=== PATIENT | male | born 1960 | race Caucasian/White ===

== ENCOUNTER 2018-07-28 10:50 | Outpatient (REF) | payer SELFPAY ==
[2018-08-01 10:28] LABS: Lyme Ab w Rflx to Lyme Confirm Negative
== END 2018-07-28 11:10 ==
LOC: NCHCN 10:50
PROVIDERS: PCP Physician Assistant Medical; Visit Provider Nurse Practitioner Family
DX: A93.8 Other specified arthropod-borne viral fevers (principal); W57.XXXA Bitten or stung by nonvenomous insect and other nonvenomous arthropods, initial encounter
CPT/HCPCS: 86618

== ENCOUNTER 2022-09-22 15:13 | Outpatient (REF) | payer SELFPAY ==
[2022-09-22 15:57] LABS: Abs Immature Grans 0.05 10^3/uL (0.0-0.06); Absolute Basophil Count 0.07 10^3/uL (0.0-0.2); Absolute Eosinophil Count 0.04 10^3/uL (0.0-0.7); Absolute Lymphocyte Count 1.06 10^3/uL (1.2-3.4); Absolute Monocyte Count 0.61 10^3/uL (0.1-0.8); Absolute Neutrophil Count 6.73 10^3/uL (1.2-6.7); Basophils % 0.8; Eosinophils % 0.5; HGB 15.3 g/dL (13.5-17.5); Immature Grans % 0.6; Lymphocytes % 12.4; MCH 31.6 pg (27.0-33.0); MCHC 34.8 % (32.0-36.0); MCV 91 fL (80-95); MPV 10.4 fL (8.0-11.0); Monocytes % 7.1; Neutrophils % 78.6; Platelet Count 288 10^3/uL (130-400); RBC 4.84 10^6/uL (4.36-5.78); RDW 13.6 % (11.8-14.1); RDW-SD 45.6 fL; WBC 8.56 10^3/uL (4.4-10.8)
[2022-09-22 16:20] LABS: ALT 23 U/L (16-63); AST 25 U/L (15-37); Alkaline Phosphatase 93 U/L (46-116); Anion Gap 7.1 mmol/L (3-11); BUN 12 mg/dL (7-18); Bilirubin, Total 0.5 mg/dL (0.2-1.0); CO2 28.9 mmol/L (21.0-32.0); CREATININE 1.1 mg/dL (0.70-1.30); Calcium 9.4 mg/dL (8.5-10.1); Chloride 100 mmol/L (98-107); Estimated GFR 75.43 (mL/min/1.73m2); Glucose 80 mg/dL (74-106); Potassium 4.6 mmol/L (3.5-5.1); Sodium 136 mmol/L (136-145); TSH (W/Ref FT4) 1.63 uIU/mL (0.36-3.74); Total Protein 7.2 g/dL (6.4-8.2)
[2022-09-23 18:07] LABS: PSA, Screening 3.3 ng/mL (<=4.5)
== END 2022-09-22 15:14 | disposition home or self-care (01) ==
LOC: NCHCN 15:13
PROVIDERS: PCP Physician Assistant Medical; Visit Provider Nurse Practitioner Family
DX: R63.4 Abnormal weight loss (principal); R05.3 Chronic cough; F10.10 Alcohol abuse, uncomplicated; Z00.00 Encounter for general adult medical examination without abnormal findings; Z80.42 Family history of malignant neoplasm of prostate; Z12.5 Encounter for screening for malignant neoplasm of prostate
CPT/HCPCS: 80053; 84153; 84443; 85025

== ENCOUNTER → 2022-10-08 02:15 | Outpatient (CLI) | payer SELFPAY ==
--- NOTE | 2022-10-08 | DI.RAD_ITS ---
Exam(s) XR CHEST 2V PA LATERAL EXAM: XR CHEST 2V PA LATERAL CLINICAL HISTORY: EXERTIONAL SOB, R06.09,SMOKER, F17.209,CHRONIC DYSPNEA TECHNIQUE: COMPARISON: No exams were available for comparison FINDINGS: The lungs are hyperinflated but clear. No pleural effusion seen. Cardiac size within normal limits. IMPRESSION: The appearance is consistent with COPD. RADIATION DOSE DELIVERED: Total DLP
== END ==
PROVIDERS: PCP Physician Assistant Medical; Visit Provider Nurse Practitioner Family
DX: R06.09 Other forms of dyspnea (principal); J44.9 Chronic obstructive pulmonary disease, unspecified
CPT/HCPCS: 71046

== ENCOUNTER 2023-01-11 09:55 | Outpatient (CLI) | payer SELFPAY ==
--- NOTE | 2023-01-11 08:30 | DI.RAD_ITS ---
Exam(s) XR WRIST LT COMPLETE EXAM: XR WRIST LT COMPLETE CLINICAL HISTORY: left thumb pain. TECHNIQUE: 2D digital imaging was performed. Three views. COMPARISON: CR XR WRIST RT COMPL NAVICULAR from 01/11/2023 FINDINGS: BONES: No acute fracture is present. No bony destructive lesion is seen. The lunate shows mild scler osis and question of small cystic areas. Degenerative. JOINTS: The carpal bones are normally aligned. There are degenerative changes at the 1st carpal met acarpal joint. The there is joint space narrowing and periarticular spurring as well as a few small chronic appearing calcifications medial to the joint space. There are more mild degenerative changes at the navicular trapezium trapezoid joint. SOFT TISSUE: Normal. IMPRESSION: Degenerative changes greatest at the 1st carpal metacarpal joint. DATA REPOSITORY: RADIATION DOSE DELIVERED:
--- NOTE | 2023-01-11 08:57 | DI.RAD_ITS ---
Exam(s) XR THUMB LT EXAM: XR THUMB LT CLINICAL HISTORY: left thumb pain. TECHNIQUE: 2D digital imaging was performed. Three views. COMPARISON: None. FINDINGS: There is mild narrowing of the interphalangeal joint of the thumb and mild periarticular spurring. T he metacarpophalangeal joints unremarkable. There are degenerative changes at the 1st carpal metacar pal joint. There is periarticular spurring and a few small chronic appearing fragments in the adjace nt soft tissues. IMPRESSION: Degenerative change greatest at the 1st carpal metacarpal joint. DATA REPOSITORY: RADIATION DOSE DELIVERED:
--- NOTE | 2023-01-11 08:58 | DI.RAD_ITS ---
Exam(s) XR WRIST RT COMPL NAVICULAR EXAM: XR WRIST RT COMPL NAVICULAR CLINICAL HISTORY: right wrist pain. TECHNIQUE: 2D digital imaging was performed. Three views. COMPARISON: CR XR WRIST LT COMPLETE from 01/11/2023 FINDINGS: BONES: No acute fracture is present. No bony destructive lesion is seen. JOINTS: The carpal bones are normally aligned. Mild degenerative changes are noted at the 1st carpa l metacarpal joint. SOFT TISSUE: Normal. IMPRESSION: Mild degenerative changes. DATA REPOSITORY: RADIATION DOSE DELIVERED:
== END 2023-01-11 09:56 | disposition home or self-care (01) ==
LOC: DIORS 09:55
PROVIDERS: PCP Physician Assistant Medical; Referring Provider Physician Assistant Medical; Visit Provider Physician Assistant
DX: M18.12 Unilateral primary osteoarthritis of first carpometacarpal joint, left hand (principal); M19.031 Primary osteoarthritis, right wrist
CPT/HCPCS: 73110; 73140

== ENCOUNTER 2023-12-27 12:26 | Outpatient (REF) | payer MEDICARE, SELFPAY ==
[2023-12-27 15:58] LABS: HCT 44.2 % (40.0-50.0); HGB 15.5 g/dL (13.5-17.5); MCH 31.6 pg (27.0-33.0); MCHC 35.1 % (32.0-36.0); MCV 90 fL (80-95); MPV 10.4 fL (8.0-11.0); Platelet Count 316 10^3/uL (130-400); RBC 4.91 10^6/uL (4.36-5.78); RDW 12.9 % (11.8-14.1); RDW-SD 42.7 fL; WBC 6.98 10^3/uL (4.4-10.8)
[2023-12-27 16:44] LABS: ALT 29 U/L (16-63); AST 32 U/L (15-37); Albumin 3.8 g/dL (3.4-5.0); Alkaline Phosphatase 91 U/L (46-116); BUN 9 mg/dL (7-18); Bilirubin, Total 0.7 mg/dL (0.2-1.0); CO2 28.7 mmol/L (21.0-32.0); Calcium 9.3 mg/dL (8.5-10.1); Chloride 99 mmol/L (98-107); Estimated GFR 83.52 (mL/min/1.73m2); Glucose 102 mg/dL (74-106); Potassium 4.3 mmol/L (3.5-5.1); TSH 1.77 uIU/mL (0.36-3.74); Total Protein 7.1 g/dL (6.4-8.2)
[2023-12-27 17:12] LABS: Anion Gap 7.3 mmol/L (3-11); Calculated LDL 84 mg/dL (<100); Cholesterol 183 mg/dL (<200); HDL Cholesterol 86 mg/dL (40-60); Sodium 135 mmol/L (136-145); Triglyceride 68 mg/dL (<150)
[2023-12-28 09:08] LABS: PSA, Screening 2.7 ng/mL (<=4.5)
== END 2023-12-27 12:27 | disposition home or self-care (01) ==
LOC: NCHCN 12:26
PROVIDERS: PCP Nurse Practitioner Family; Visit Provider Nurse Practitioner Family
DX: R06.09 Other forms of dyspnea (principal); Z12.5 Encounter for screening for malignant neoplasm of prostate; Z13.6 Encounter for screening for cardiovascular disorders
CPT/HCPCS: 80053; 80061; 84153; 85027; 84443

== ENCOUNTER → 2024-01-04 01:02 | Outpatient (CLI) | payer MEDICARE, SELFPAY ==
--- NOTE | 2024-01-04 | ETT_ITS ---
APPROVED REPORT Exam: Exercise Treadmill Patient Location: Out-Patient Room/Bed: Stress Nurse: Mónica Rivas RN Ordering Provider:NANCI ROSA, Contact Number: [phone] BMI: 19.10 Baseline Rhythm: Sinus Rhythm Comment: Occasional PAC's Indications: STEPHENS, Medical History Medical History: Weight loss, nicotine dependence, ETOH abuse Cardiac Medications: Symbicort, xopenex, albuterol sulfate, fluticasone propionate/salmeterol Allergies: NKDA Cardiac Risk Factors: Family hx, COPD, current smoker Previous Cardiac Procedures: None Pretest Chest Pain Characteristics: None Exercise History: Indeterminate Physical Disabilities: None Lung Sounds: Diminsished throughout Heart Sounds: Irregular Stress Test Details Test: Exercise stress testing was performed using a Elian protocol. Rest Stress HR Resting HR Supine: 67 bpm Max Heart Rate (APMHR): 155 bpm Resting HR Standin bpm Target HR (85% APMHR): 132 bpm Max HR Achieved: 114 bpm % of APMHR: 74 Recovery HR: 71 bpm HR response to stress: Normal HR response to stress BP Resting BP Supine: 158/90 mmHg Resting BP Standin/100 mmHg Max BP: 210/110 mmHg Recovery BP: 152/98 mmHg BP response to stress: Abnormal hypertensive response to stress. ECG Resting ECG: Sinus Rhythm Ectopy: Occasional PAC's Comment: Peaked T wave Stress ECG: Sinus Tachycardia ST Change: Nondiagnostic low heart rate Arrhythmia: Occasional PAC's, couplets Recovery ECG: Sinus Rhythm Recovery ST Change: Nondiagnostic low heart rate Recovery Arrhythmia: Occasioncal PAC's Clinical Reason for Termination: Dyspnea Stress Symptoms: Severe Dyspnea Exercise duration: 03 min48 sec Exercise capacity: 5.59 METs Angina Score: None Waller Treadmill Score: 3.2 Rate Pressure Product: [id number] Stress ECG Conclusion 1. Resting electreocardiogram showed poor R wave progression 2. Patient exercised on the Elian protocol for 3 minutes and 48 seconds, a workload of 5.59 METS stop ping due to dyspnea 3. Normal heart rate response to exercise. Moderately hypertensive blood pressure response to exerci se. Peak heart rate achieved was 74% of predicted heart rate for age 4. The electrocardiographic portion of the test was nondiagnostic due to inadequate heart rate,though no abnormalities were noted at the heart rate and workload achieved 5. There were no significant arrhythmias Waller Treadmill Score is 3.2 which is Moderate risk. Stress Test Summary STAGE Time (mins) Speed (mph) Grade (%) HR BP SpO2 SYMPTOMS METS Supine 67 158/90 94 Standing 76 188/100 1 3 1.7 10 111 198/108 93 4.5 1 min recovery 85 210/110 94 3 min recovery 74 172/100 96 6 min recovery 71 152/98 96 Patient unable to reach target HR due to severe dyspnea. Patient recovered quickly and left ambulator y in no apparent distress.
== END ==
PROVIDERS: PCP Nurse Practitioner Family; Visit Provider Nurse Practitioner Family
DX: R06.09 Other forms of dyspnea (principal)
CPT/HCPCS: 93016; 93018; 93017

== ENCOUNTER 2024-01-10 05:08 | Outpatient (CLI) | payer MEDICARE, SELFPAY ==
[2024-01-10] MEDS: Levalbuterol HFA 15 GM INH 4 PUFF IH (09:21)
[2024-01-10] MEDS: Inhaler, Assist Device 1 EACH MC (09:22)
--- NOTE | 2024-01-10 11:02 | W.PFT ---
Date of service: 01/10/24 Time of Service: 08:03 Pulmonary Function Test Result Indications: Dyspnea Interpretation Spirometry: There is very severe airflow limitation. No bronchodilator response. Lung Volumes: There is air trapping and hyperinflation. Diffusion Capacity: Decreased diffusion. Airway Pressure: Increased airways resistance. Impression There is very severe airflow obstruction with air trapping and a decreased diffusion. Clinical Correlation therefore is recommended.
== END 2024-01-10 05:09 | disposition home or self-care (01) ==
LOC: RT 05:08
PROVIDERS: PCP Nurse Practitioner Family; Visit Provider Nurse Practitioner Family
DX: R06.00 Dyspnea, unspecified (principal); R94.2 Abnormal results of pulmonary function studies
CPT/HCPCS: 94060; 94726; 94729

== ENCOUNTER → 2024-01-18 08:15 | Outpatient (BNVA) | payer MEDICARE, SELFPAY | PROVIDERS: PCP Nurse Practitioner Family; Referring Provider Nurse Practitioner Family; Visit Provider Physician Assistant Surgical | DX: J44.9 Chronic obstructive pulmonary disease, unspecified (principal); F17.210 Nicotine dependence, cigarettes, uncomplicated | CPT/HCPCS: 94664; 99215 ==

== ENCOUNTER → 2024-01-25 01:19 | Outpatient (CLI) | payer MEDICARE, SELFPAY ==
--- NOTE | 2024-01-25 08:30 | DI.US_ITS ---
APPROVED REPORT EXAM: Comprehensive 2D, Doppler, and color-flow Echocardiogram Patient Location: Out-Patient Retail Receiving Clerk: Malena Medina RDCS (AE) Indications: Dyspnea on exertion Other Information Study Quality: Fair. Technically limited study due to body habitus, history of smoking technically li mited views. Conclusion Normal left ventricular wall thickness and chamber size. Ejection fraction is 55-55%. There are no segmental wall motion abnormalities Normal right ventricular size and function Both atria are normal in size There are no structural valvular abnormalities Mild tricuspid regurgitation, Estimated right ventricular systolic pressure is 40 mmHg Wall motion Left Ventricle Very low parasternal imaging due to lung interface, calculation not performed. The left ventricle is normal size. Left ventricular systolic function is borderline. There is normal left ventricular wall thickness. There are no segmental wall motion abnormalities There is no ventricular septal defect vis ualized. LVEF is 50-55%. Right Ventricle Right ventricle is grossly normal in size. Right ventricular systolic function is grossly normal. Atria The left atrium size is normal. The right atrium size is normal. The interatrial septum is intact wit h no evidence for an atrial septal defect. Aortic Valve The aortic valve is normal in structure. Aortic valve is trileaflet. There is no aortic valvular sten osis. No aortic regurgitation is present. Mitral Valve The mitral valve is normal in structure. No evidence of mitral valve stenosis. Trace mitral regurgita tion. Tricuspid Valve The tricuspid valve is normal in structure. There is no tricuspid valve stenosis. Mild tricuspid regu rgitation. The RVSP is 40.2 mmHg. Pulmonic Valve The pulmonary valve is normal in structure. There is no pulmonic valvular stenosis. Trace pulmonic re gurgitation. Great Vessels The aortic root is normal in size. Ascending aorta is not well visualized. Aortic arch is not well vi sualized. IVC is normal in size and collapses >50% with inspiration. Pericardium There is no pericardial effusion. 2D Dimensions Ao Root d 3.05 cm M: 3.1 - 3.7 M-Mode TAPSE 1.60 cm (M/F) >1.7 Auto EF LV EDV A4C 81.3 mL LV EDV A2C 92.7 mL LV EDV BP 88.2 mL LV ESV A4C 40.9 mL LV ESV A2C 46.4 mL LV ESV BP 43.3 mL LVEF(%) A4C 49.6 % LVEF(%) A2C 49.9 % LVEF(%) BP 50.9 % LV SV A4C 40.3 ml LV SV A2C 46.2 ml LV SV BP 44.9 ml LV CO A4C 2.8 L/min LV CO A2C 3.3 L/min LV CO BP 3.1 L/min HR A4C 69.34 BPM HR A2C 71.57 BPM LV EDV Index (BP) LA Volume LA Length A4C 4.4 cm LA Length A2C 3.6 cm LA Area A4C s 12.24 cm2 LA Area A2C s 9.04 cm2 LA Vol A4C A-L 29.02 mL LA Vol A2C A-L 19.15 mL LA Vol Biplane A-L 25.9 mL LA Vol/BSA A4C A-L LA Vol/BSA A2C A-L LA Vol/BSA BP A-L 15.0 mL/m2 LA Vol A4C MOD 25.5 mL LA Vol A2C MOD 17.3 mL LA Vol BP MOD 22.9 mL RA Volume RA Area A4C 10.5 cm2 RA ESV A4C (A-L) 25.1mL RA Vol/BSA A4C A-L RA Length A4C 3.7 cm RA ESV A4C (MOD) 23.8mL LV Diastology MV E' medial 0.056 (>0.07 m/s) MV E Vmax 0.53 (0.4-1.3 m/s) MV E/E' MED 9.55 (<14) MV A Vmax 0.65 (0.4-1.3 m/s) MV E' lateral 0.041 (>0.1 m/s) E/A Ratio 0.8 MV E/E' LAT 13.12 (<14) MV E' Average 0.048 m/s MV E/E'(average) 11.05 Aortic Valve AoV Vmax 0.88 m/s LVOT Vmax 0.83 m/s AoV Peak Grad 3.1 mmHg LVOT Peak Grad 2.8 mmHg AoV Area (Vmax) 3.06 cm2 LVOT VTI 0.147 m AoV VTI 0.166 m LVOT Mean Grad 1.3 mmHg AoV Mean Devante. 0.58 m/s LVOT SV 47.38 mL AoV Mean Grad 1.6 mmHg LVOT Diam s 2.00 cm AoV Area (VTI) 2.86 cm2 Velocity Ratio 0.94 Mitral Valve MV DT 286 (160-240 msec) MV Vmax TIPS 0.63 m/s MV Mean Grad 0.7 (<2mmHg) MV VTI 0.174 m Pulmonary Valve PV Vmax 0.74 (0.5-1.5 m/s) RVOT Vmax 0.69 m/s PV Peak Grad 2.2 mmHg RVOT Peak Gr. 1.9 mmHg PV Mean Devante 0.49 m/s RVOT VTI 0.119 m PV Mean Grad 1.1 mmHg RVOT Mean Gr. 0.9 mmHg Tricuspid Valve RA Pressure 3.00 mmHg TR Vmax 3.05 m/s TV S' 0.14 m/s TR Peak Grad 37.1 mmHg RVSP (TR) 40.2 mmHg
== END ==
PROVIDERS: PCP Nurse Practitioner Family; Visit Provider Nurse Practitioner Family
DX: R06.09 Other forms of dyspnea (principal)
CPT/HCPCS: 93306

== ENCOUNTER → 2024-02-02 02:59 | Outpatient (CLI) | payer MEDICARE, SELFPAY ==
--- NOTE | 2024-02-02 07:00 | DI.CTLCSR_ITS ---
Exam(s) CT CHEST LUNG CANCER SCREEN EXAM: CT CHEST LUNG CANCER SCREEN CLINICAL HISTORY: Screening for lung cancer,current smoker, f17.210 TECHNIQUE: Imaging Protocol: Axial computed tomography images with coronal and sagittal reformatted images were created and reviewed COMPARISON: CR XR CHEST 2V PA LATERAL from 10/08/2022 FINDINGS: Tracheobronchial tree: Patent where visualized. Pulmonary parenchyma: Moderately severe centrilobular and paraseptal emphysematous changes are presen t. No focal consolidating infiltrates. Lung Nodules: None. Mediastinum and Stephanie: No dominant adenopathy or fluid collection. The esophagus is unremarkable. Thyroid gland: Unremarkable. Lymph nodes: Unremarkable. Pleura: No effusion or pneumothorax. Heart: The heart is not dilated. Mild coronary artery calcification is present. No pericardial effus ion. Aorta: Thoracic aorta non-dilated.Atherosclerotic calcification is present. Upper abdomen: Unremarkable. Soft Tissues: Unremarkable. Bones: Within normal limits. IMPRESSION: No pulmonary nodules. Lung RADS Cat 1 - Negative: No nodules and definitely benign nodules Lung-RADS 1.0 CATEGORIES: Category 0 - Prior chest CT exam(s) being located for comparison. Category 1 - Annual screening in 12 months. No nodules or definitely benign nodules. Category 2 - Annual screening in 12 months. Benign appearance. Nodules with low likelihood of becomin g active cancer. Category 3 - 6-month follow-up. Probably benign. Short-term follow-up suggested. Nodules with low lik elihood of becoming active cancer. Category 4A - 3-month follow-up and CT/PET if >8 mm in size. Suspicious finding. Findings which requi re additional testing. Category 4B - Findings which require additional testing and tissue sampling. Suspicious finding. Category 4X - Category 3 or 4 nodules with additional features or imaging findings that increases the suspicion of malignancy. Modifier S- Potentially clinically significant finding. (Non lung cancer) RADIATION DOSE DELIVERED: Total DLP Total DLP DATA REPOSITORY: All CT scans at this facility are submitted to the National Radiology Data Registry (NRDR) Dose Index Registry (DIR) with the [employer] (ACR). RADIATION OPTIMIZATION: All CT scans at this facility use at least one of these dose optimization te chniques: automated exposure control; mA and/or kV adjustment per patient size (includes targeted exa ms where dose is matched to clinical indication); or iterative reconstruction.
== END ==
PROVIDERS: PCP Nurse Practitioner Family; Visit Provider Physician Assistant Surgical
DX: F17.210 Nicotine dependence, cigarettes, uncomplicated (principal); Z12.2 Encounter for screening for malignant neoplasm of respiratory organs
CPT/HCPCS: 71271

== ENCOUNTER 2024-03-03 11:17 | Outpatient (RCR) | payer MEDICARE, SELFPAY ==
--- NOTE | 2024-03-03 12:45 | HOLTER_ITS ---
APPROVED REPORT Conclusion This is a 48-hour Holter monitor Rhythm throughout is sinus with an average heart rate 80. Minimum is 54, maximum 113 There were rare isolated atrial and ventricular ectopic beats There was no atrial fibrillation, no high-grade AV block, no pauses greater than 3 seconds Patient symptoms had no correlation to any dysrhythmia
== END 2024-03-21 23:59 | disposition home or self-care (01) ==
LOC: CARDOPNVT 11:17
PROVIDERS: PCP Nurse Practitioner Family; Visit Provider Nurse Practitioner Family
DX: R00.2 Palpitations (principal)
CPT/HCPCS: 93227; 93225

== ENCOUNTER → 2024-04-05 03:53 | Outpatient (CLI) | payer MEDICARE, SELFPAY ==
--- NOTE | 2024-04-05 | DI.US_ITS ---
Exam(s) US AAA SCREENING EXAM: US AAA SCREENING CLINICAL HISTORY: Screening for CV disorders, Z13.6; tobacco use, Z72.0 COMPARISON: No exams were available for comparison FINDINGS: Abdominal Aorta: Proximal: 2.4 x 2.4 cm Mid: 2.0 x 2.0 cm Distal: 1.7 x 1.8 cm Iliac's: Right: 0.9 x 0.9 cm Left: 0.9 x 0.9 cm Minimal atherosclerotic calcification. IMPRESSION: No evidence of abdominal aortic aneurysm. DATA REPOSITORY:
== END ==
PROVIDERS: PCP Nurse Practitioner Family; Visit Provider Nurse Practitioner Family
DX: Z13.6 Encounter for screening for cardiovascular disorders (principal); Z72.0 Tobacco use
CPT/HCPCS: 76706

== ENCOUNTER → 2024-04-21 10:03 | Outpatient (BNVA) | payer MEDICARE, SELFPAY | PROVIDERS: PCP Nurse Practitioner Family; Referring Provider Nurse Practitioner Family; Visit Provider Student in an Organized Health Care Education/Training Program | DX: J43.9 Emphysema, unspecified (principal); F17.200 Nicotine dependence, unspecified, uncomplicated | CPT/HCPCS: 99214 ==

== ENCOUNTER 2024-05-15 15:17 | Outpatient (REF) | payer MEDICARE, SELFPAY ==
[2024-05-17 10:45] LABS: Lyme Ab w Rflx to Lyme Confirm Negative (Negative)
[2024-05-18 21:40] LABS: Anaplasma phagocytophilum Negative (Negative); B. miyamotoi PCR Negative (Negative); Babesia divergens/MO-1 Negative (Negative); Babesia duncani Negative (Negative); Babesia microti Negative (Negative); Ehrlichia chaffeensis Negative (Negative); Ehrlichia ewingii/canis Negative (Negative); Ehrlichia muris eauclairensis Negative (Negative)
== END 2024-05-15 15:18 | disposition home or self-care (01) ==
LOC: NCHCN 15:17
PROVIDERS: PCP Nurse Practitioner Family; Visit Provider Nurse Practitioner Family
DX: T14.8XXA Other injury of unspecified body region, initial encounter (principal); W57.XXXA Bitten or stung by nonvenomous insect and other nonvenomous arthropods, initial encounter; Z20.818 Contact with and (suspected) exposure to other bacterial communicable diseases
CPT/HCPCS: 87798; 86618

== ENCOUNTER → 2024-08-02 09:37 | Outpatient (BNVA) | payer MEDICARE, SELFPAY | PROVIDERS: PCP Nurse Practitioner Family; Referring Provider Nurse Practitioner Family; Visit Provider Physician Assistant Surgical | DX: J43.9 Emphysema, unspecified (principal) | CPT/HCPCS: 99214 ==

== ENCOUNTER → 2024-10-31 09:53 | Outpatient (BNVA) | payer MEDICARE, SELFPAY | PROVIDERS: PCP Nurse Practitioner Family; Referring Provider Nurse Practitioner Family; Visit Provider Physician Assistant Surgical | DX: J43.9 Emphysema, unspecified (principal); F17.210 Nicotine dependence, cigarettes, uncomplicated | CPT/HCPCS: 99214 ==

== ENCOUNTER → 2025-01-31 10:23 | Outpatient (BNVA) | payer MEDICARE, SELFPAY | PROVIDERS: PCP Nurse Practitioner Family; Referring Provider Nurse Practitioner Family; Visit Provider Physician Assistant Surgical | DX: F17.200 Nicotine dependence, unspecified, uncomplicated (principal); J43.9 Emphysema, unspecified | CPT/HCPCS: 99214 ==

== ENCOUNTER 2025-02-09 00:14 | Outpatient (CLI) | payer MEDICARE, SELFPAY ==
--- NOTE | 2025-02-09 12:28 | DI.CTLCSR_ITS ---
Exam(s) CT CHEST LUNG CANCER SCREEN EXAM: CT CHEST LUNG CANCER SCREEN CLINICAL HISTORY: Screening for lung cancer,former cigarette smoker, z87.891 TECHNIQUE: Imaging Protocol: Axial computed tomography images with coronal and sagittal reformatted images were created and reviewed. Low dose screening protocol. COMPARISON: CT CT CHEST LUNG CANCER SCREEN from 02/02/2024 FINDINGS: Tracheobronchial tree: No bronchiectasis or mucus plugging. Mediastinum and Stephanie: No dominant adenopathy or fluid collection. Pulmonary parenchyma: Area of patchy density seen in the posterior inferior aspect of the right upper lobe, abutting the fissure, measuring approximately 2.5 cm. Seven millimeter nodule in the right lo wer lobe. Five millimeter nodule in the left upper lobe. Multiple micronodules in the right middle lobe. Moderate to severe centrilobular and paraseptal emphysematous changes. Large bleb at the left major f issure. Bibasilar atelectasis. Lung Nodules: None. Pleura: No effusion. No pneumothorax. Heart: The heart is not dilated. Mild coronary artery calcifications are seen. No pericardial effusio n. Aorta: Thoracic aorta non-dilated. Upper abdomen: Unremarkable. Bones: Unremarkable for age. Soft Tissues: Unremarkable. IMPRESSION: 2.5 centimeter area of mass versus infiltrate in the right upper lobe. Multiple Micronodules in the right middle lobe may be inflammatory. Left upper and right lower lobe nodules. All the findings ar e new from the prior exam. Due to multifocal Abnormality, the findings may be related to infectious or inflammatory etiologies. Clinical correlation is recommended. Lung RADS Cat 4B - Suspicious: Findings for which additional diagnostic testing and/or tissue samplin g is recommended Lung-RADS 1.0 CATEGORIES: Category 0 - Prior chest CT exam(s) being located for comparison. Category 1 - Annual screening in 12 months. No nodules or definitely benign nodules. Category 2 - Annual screening in 12 months. Benign appearance. Nodules with low likelihood of becomin g active cancer. Category 3 - 6-month follow-up. Probably benign. Short-term follow-up suggested. Nodules with low lik elihood of becoming active cancer. Category 4A - 3-month follow-up and CT/PET if >8 mm in size. Suspicious finding. Findings which requi re additional testing. Category 4B - Findings which require additional testing and tissue sampling. Category 4X - Category 3 or 4 nodules with additional features or imaging findings that increases the suspicion of malignancy. Modifier S- Potentially clinically significant findings (non lung cancer) RADIATION DOSE DELIVERED: !Error Total DLP DATA REPOSITORY: All CT scans at this facility are submitted to the National Radiology Data Registry (NRDR) Dose Index Registry (DIR) with the [employer] (ACR). RADIATION OPTIMIZATION: All CT scans at this facility use at least one of these dose optimization te chniques: automated exposure control; mA and/or kV adjustment per patient size (includes targeted exa ms where dose is matched to clinical indication); or iterative reconstruction.
== END 2025-02-09 00:34 ==
PROVIDERS: PCP Nurse Practitioner Family; Visit Provider Physician Assistant Surgical
DX: Z87.891 Personal history of nicotine dependence (principal); Z12.2 Encounter for screening for malignant neoplasm of respiratory organs
CPT/HCPCS: 71271

== ENCOUNTER 2025-05-14 02:37 | Outpatient (CLI) | payer MEDICARE, SELFPAY ==
--- NOTE | 2025-05-14 07:15 | DI.CT_ITS ---
Exam(s) CT CHEST WO EXAM: CT CHEST WO CLINICAL HISTORY: F/U PNEUMONIA, J18.9 TECHNIQUE: Imaging Protocol: Axial computed tomography images with coronal and sagittal reformatted images were created and reviewed. Computer aided detection (CAD) was utilized. CONTRAST MATERIAL: Intravenous: Omnipaque 350 Contrast volume:structured data ml. COMPARISON: CT CT CHEST LUNG CANCER SCREEN from 02/02/[address] CHEST LUNG CANCER SCREEN from 02/09/2025 FINDINGS: Pulmonary parenchyma: No consolidation. No dominant measurable mass. Moderate emphysematous changes. Large bleb again noted the anterior left lower lobe. Interval clearing of previously noted nodular density in the posterior right upper lobe. Clearing of previously noted densities at the lung bases. Clearing of micro nodules noted in the right middle lobe. No suspicious pulmonary nodules. Tracheobronchial tree: Minimal lower lobe bronchiectasis. Focal mucous plugging noted in a left lower lobe branch. Additional small area of focal medius this plugging at the left lower lobe right lower lobe. Mediastinum and Stephanie: No dominant adenopathy or fluid collection. Pleura: No effusion. No pneumothorax. Heart: The heart is not dilated. Mild coronary artery calcifications are seen. Aorta: Thoracic aorta non-dilated. Mild atherosclerotic changes. Pulmonary arteries: No gross evidence of emboli. Upper abdomen: No acute findings. Bones: Degenerative changes in the spine. Soft tissues: Unremarkable. IMPRESSION: Interval clearing of previously noted infiltrates. Underlying emphysematous changes. Mild lower lobe bronchiectasis. Mild focal lower lobe mucous plugging. RADIATION DOSE DELIVERED: 146.09mGy.cm Total DLP DATA REPOSITORY: All CT scans at this facility are submitted to the National Radiology Data Registry (NRDR) Dose Index Registry (DIR) with the [employer] (ACR). RADIATION OPTIMIZATION: All CT scans at this facility use at least one of these dose optimization techniques: automated exposure control; mA and/or kV adjustment per patient size (includes targeted exams where dose is matched to clinical indication); or iterative reconstruction.
== END 2025-05-14 02:57 ==
LOC: DI 02:37
PROVIDERS: PCP Nurse Practitioner Family; Visit Provider Physician Assistant Surgical
DX: J18.9 Pneumonia, unspecified organism (principal)
CPT/HCPCS: 71250

== ENCOUNTER → 2025-05-16 10:56 | Outpatient (BNVA) | payer MEDICARE, SELFPAY | PROVIDERS: PCP Nurse Practitioner Family; Referring Provider Nurse Practitioner Family; Visit Provider Physician Assistant Surgical | DX: J44.9 Chronic obstructive pulmonary disease, unspecified (principal); Z87.891 Personal history of nicotine dependence; J43.9 Emphysema, unspecified | CPT/HCPCS: 99214 ==

== ENCOUNTER 2025-07-09 04:30 | Outpatient (CLI) | payer MEDICARE, SELFPAY | END 2025-07-09 04:31 | disposition home or self-care (01) | LOC: RT 04:30 | PROVIDERS: PCP Nurse Practitioner Family; Visit Provider Physician Assistant Surgical | DX: J96.11 Chronic respiratory failure with hypoxia (principal) | CPT/HCPCS: 94618 ==

== ENCOUNTER 2025-07-11 19:38 | Outpatient (REF) | payer MEDICARE, SELFPAY ==
[2025-07-11 21:22] LABS: HCT 45.2 % (40.0-50.0); HGB 15.4 g/dL (13.5-17.5); MCH 29.2 pg (27.0-33.0); MCHC 34.1 % (32.0-36.0); MCV 86 fL (80-95); MPV 10.6 fL (8.0-11.0); Platelet Count 266 10^3/uL (130-400); RBC 5.27 10^6/uL (4.36-5.78); RDW 15.3 % (11.8-14.1); RDW-SD 47.9 fL; WBC 11.22 10^3/uL (4.4-10.8)
== END 2025-07-11 19:39 | disposition home or self-care (01) ==
LOC: NCHCN 19:38
PROVIDERS: PCP Nurse Practitioner Family; Visit Provider Nurse Practitioner Family
DX: R10.32 Left lower quadrant pain (principal); Z87.19 Personal history of other diseases of the digestive system
CPT/HCPCS: 80053; 83690; 85027

== ENCOUNTER 2025-07-17 09:46 | Outpatient (CLI) | payer MEDICARE, SELFPAY ==
--- NOTE | 2025-07-17 | DI.CT_ITS ---
Exam(s) CT ABDOMEN PELVIS W EXAM: CT ABDOMEN PELVIS W CLINICAL HISTORY: LT SIDED ABD PAIN,R10.9,ABD PAIN,R63.4,ABNL WT LOSS,H/O OTHER DISEASE. TECHNIQUE: Imaging Protocol: Axial computed tomography images with coronal and sagittal reformatted images were created and reviewed CONTRAST MATERIAL: Intravenous: Omnipaque-350 75cc Oral: Yes. Oral contrast was also administered for bowel opacification. COMPARISON: CT CT CHEST WO from 05/14/2025 FINDINGS: VISUALIZED LUNG BASES: High there are COPD findings. However, there is no bronchial wall thickening and areas of infiltrate in the right lower lobe and right middle lobe and left lower lobe which were not evident arm 05/14/2025. There is no associated pleural effusion.. ABDOMEN: There is no ascites. LIVER: There is a benign 2 mm cyst in the superior aspect of the right hepatic lobe. Does not require further workup. No solid lesions in the liver. No dilated intrahepatic ducts. GALLBLADDER/BILIARY: No obvious gallbladder pathology. CBD is not dilated. PANCREAS: No evidence of pancreatic mass nor dilatation of the pancreatic duct. SPLEEN: Spleen is not enlarged. No obvious intrasplenic lesions. Splenic and portal veins are patent. ADRENALS: There are no significant adrenal masses. KIDNEYS:No cysts evident. No solid renal masses. No calculi nor hydronephrosis.. ABDOMINAL AORTA: Calcified but not enlarged. Iliac arteries are also calcified but not enlarged. LYMPH NODES:There is no retroperitoneal nor paraaortic adenopathy. ABDOMINAL WALL: No evidence of significant anterior abdominal wall nor inguinal hernia. GI: There all contrast has progressed to the level rectum. There is no evidence of bowel obstruction, free air, nor abscess. PELVIS: GI: No evidence of appendicitis.No evidence of sigmoid diverticulitis. LYMPH NODES: There is no intrapelvic nor inguinal adenopathy. REPRODUCTIVE: Prostate size minimally prominent. Measures 5 cm wide. There is calcification in the right-side of the prostate. Seminal vesicles appear unremarkable. URINARY BLADDER: No calculi nor obvious masses evident OSSEOUS: No fractures and no significant osseous lesions. IMPRESSION: 1. There is bronchial wall thickening and patchy infiltrate involving basal segments of the right lower lobe as well as a partially visualize right middle lobe. There are no pleural effusions. This finding was not evident on recent CT scan of the chest performed 05/14/2025, and is superimposed upon underlying COPD. 2. Mildly enlarged prostate. RADIATION DOSE DELIVERED: 232.46mGy.cm Total DLP DATA REPOSITORY: All CT scans at this facility are submitted to the National Radiology Data Registry (NRDR) Dose Index Registry (DIR) with the [employer] (ACR). RADIATION OPTIMIZATION: All CT scans at this facility use at least one of these dose optimization techniques: automated exposure control; mA and/or kV adjustment per patient size (includes targeted exams where dose is matched to clinical indication); or iterative reconstruction.
[2025-07-17] MEDS: Barium Sulfate 2% W/V-Berry Smoothie 450 ML BTL PO (12:10)
[2025-07-17] MEDS: Barium Sulfate 2% W/V-Creamy Vanilla Smoothie 450 ML BTL PO (12:10)
[2025-07-17 12:51] LABS: ALT 15 U/L (16-63); AST 15 U/L (15-37); Albumin 2.7 g/dL (3.4-5.0); Alkaline Phosphatase 113 U/L (46-116); Anion Gap 6.6 mmol/L (3-11); BUN 10 mg/dL (7-18); Bilirubin, Total 1.0 mg/dL (0.2-1.0); CO2 30.4 mmol/L (21.0-32.0); Calcium 9.1 mg/dL (8.5-10.1); Chloride 97 mmol/L (98-107); Estimated GFR 101.62 (mL/min/1.73m2); Glucose 89 mg/dL (74-106); Potassium 3.5 mmol/L (3.5-5.1); Sodium 134 mmol/L (136-145); Total Protein 7.0 g/dL (6.4-8.2)
[2025-07-17] MEDS: Omnipaque 350 MG/ML 100 ML BTL IJ (14:28)
[2025-07-17] MEDS: Normal Saline - Diluent 50 ML VIAL IJ (14:30)
[2025-07-17] MEDS: Normal Saline Flush 10 ML SYR IVP (14:31)
[2025-07-17 14:45] LABS: Lipase 21 U/L (<78)
== END 2025-07-17 10:06 ==
LOC: DI 09:47
PROVIDERS: PCP Nurse Practitioner Family; Visit Provider Nurse Practitioner Family
DX: R10.9 Unspecified abdominal pain (principal); F10.21 Alcohol dependence, in remission; R63.4 Abnormal weight loss; N40.0 Benign prostatic hyperplasia without lower urinary tract symptoms; Z87.19 Personal history of other diseases of the digestive system
CPT/HCPCS: 80053; 83690; 74177; J3490

== ENCOUNTER → 2025-08-16 13:09 | Outpatient (BNVA) | payer MEDICARE, SELFPAY | PROVIDERS: PCP Nurse Practitioner Family; Referring Provider Nurse Practitioner Family; Visit Provider Internal Medicine Pulmonary Disease | DX: J44.9 Chronic obstructive pulmonary disease, unspecified (principal); R05.3 Chronic cough; F17.210 Nicotine dependence, cigarettes, uncomplicated | CPT/HCPCS: 99214 ==

== ENCOUNTER → 2025-11-01 12:22 | Outpatient (CLI) | payer MEDICARE, SELFPAY ==
--- NOTE | 2025-11-01 | DI.RAD_ITS ---
Exam(s) XR CHEST 2V PA LATERAL EXAM: XR CHEST 2V PA LATERAL CLINICAL HISTORY: COPD,J44.9,WORSENING COUGH,EXAC OF COPD,? ACUTE PULMONARY CONCERNS TECHNIQUE: 2D digital imaging was performed. Two views. COMPARISON: CR XR CHEST SINGLE VIEW from 01/04/[address] CHEST WO from 05/14/[address] ABDOMEN PELVIS W from 07/17/2025 FINDINGS: HEART: Normal size. Aorta: Not dilated. PULMONARY VASCULATURE: Normal. MEDIASTINUM: Unremarkable. LUNGS: Hyperinflation. Emphysematous changes. There is mild scarring at the right lung base. The previously noted right lower lobe infiltrate appears have resolved. PLEURAL SPACE: No pleural effusion or pneumothorax. BONE:Unremarkable for age. SOFT TISSUES: Unremarkable. IMPRESSION: No acute abnormality. DATA REPOSITORY: RADIATION DOSE DELIVERED:
== END ==
PROVIDERS: PCP Nurse Practitioner Family; Visit Provider Nurse Practitioner Family
DX: J44.9 Chronic obstructive pulmonary disease, unspecified (principal)
CPT/HCPCS: 71046

== ENCOUNTER 2025-11-19 00:53 | Outpatient (CLI) | payer MEDICARE, SELFPAY ==
[2025-11-19] MEDS: Inhaler, Assist Device 1 EACH MC (11:22)
[2025-11-19] MEDS: Levalbuterol HFA 15 GM INH 4 PUFF IH (11:22)
--- NOTE | 2025-11-20 11:24 | W.PFT ---
Date of service: 11/19/25 Time of Service: 09:59 Pulmonary Function Test Result Indications: COPD Impression 1. Good patient effort was noted. ATS standards for reproducibility were met. 2. Spirometry showed very severe obstructive lung disease with an FEV1 of 25% (0.75 L) 3. Following the administration of a bronchodilator there was not a significant response 4. TLC and RV were elevated, consistent with air trapping 5. DLCO was 53%, consistent with a moderate defect in alveolar gas exchange
== END 2025-11-19 00:54 | disposition home or self-care (01) ==
LOC: RT 00:54
PROVIDERS: PCP Nurse Practitioner Family; Visit Provider Internal Medicine Pulmonary Disease
DX: J44.89 Other specified chronic obstructive pulmonary disease (principal)
CPT/HCPCS: 94060; 94726; 94729

== ENCOUNTER 2025-11-19 12:44 | Outpatient (REF) | payer MEDICARE, SELFPAY ==
[2025-11-19 12:52] LABS: BE 3 mmol/L (-2-3); FIO2L 2 L; HCO3 27 mmol/L (22-26)
== END 2025-11-19 12:45 | disposition home or self-care (01) ==
LOC: LBN 12:44
PROVIDERS: PCP Nurse Practitioner Family; Visit Provider Internal Medicine Pulmonary Disease
DX: J44.9 Chronic obstructive pulmonary disease, unspecified (principal)
CPT/HCPCS: 82805